=== PATIENT | female | born 1940 | race Caucasian/White ===

== ENCOUNTER 2016-10-11 15:20 | Day surgery (SDC) | payer OTHER ==
[~2016-10-11] VITALS: Ht 152.4 cm; Wt 62.9 kg
[2016-10-11 16:06] VITALS: Ht 152.4 cm; Wt 62.9 kg
[2016-10-11] MEDS ORDERED: HTN MED PO (16:13)
[2016-10-11 16:27] VITALS: BP 122/81; PULSE 64; RESP 16
[2016-10-11] MEDS ORDERED: LIDOCAINE 2% (SDV) 5 ML INJ ONE (16:38)
[2016-10-11] MEDS ORDERED: PROPOFOL 40 ML ONE (16:38)
[2016-10-11 17:42] VITALS: BP 167/74; PULSE 60; RESP 21
--- NOTE | 2016-10-11 18:32 | GILP ---
DATE OF PROCEDURE: 10/11/2016 NAME OF PROCEDURES: 1. Esophagogastroduodenoscopy and biopsy. 2. Colonoscopy. SURGEON: Heather Guerra MD PREOPERATIVE DIAGNOSES: 1. Abdominal pain. 2. Chronic heartburn. 3. Positive occult blood in stool. POSTOPERATIVE DIAGNOSES: 1. Hiatal hernia. 2. Gastroesophageal reflux disease. 3. Gastritis. 4. Gastric mucosal biopsies were taken for Helicobacter pylori test. 5. Colonoscopy all the way to the cecum. 6. Poor prep making the exam somewhat suboptimal. 7. Diverticulosis of the colon. 8. Internal hemorrhoids. INDICATION FOR THE PROCEDURE: Ms. Rosaura Patricio is a 76-year-old female patient who had upper abd ominal pain and chronic heartburn, not responding to therapy. She was noted to have positive occult blood in stool. Patient was scheduled for endoscopy and colonoscopy for further evaluation. The procedures and possible complications are well explained to the patient. The patient understood and consented to the procedure. DESCRIPTION OF PROCEDURE: Under the influence of anesthesia, the gastroscope was carefully introduc ed into the esophagus and under direct vision, it was advanced to the stomach and through the pyloru s into the duodenal bulb and descending duodenum. FINDINGS: ESOPHAGUS: The patient had hiatal hernia and gastroesophageal reflux disease. STOMACH: She had gastritis with erosions. Gastric mucosal biopsies were taken for H. pylori test. DUODENUM: Normal. The colonoscope was carefully introduced in the rectum and under direct vision, it was advanced all the way to the cecum. FINDINGS: The patient had poor prep making the exam somewhat suboptimal. She was noted to have div erticulosis of the colon. She also had internal hemorrhoids. She tolerated the procedures very well and there was no complication from the procedures. At the en d of the procedures, she was awake with stable vital signs and she was discharged home to the care o f her family. IMPRESSION: Please see postoperative diagnosis. PLAN: 1. Omeprazole 40 mg p.o. q.a.m. 2. Await H. pylori test report. 3. Because of the poor prep and suboptimal nature of the examination, would recommend repeat colono scopy in 1 year with better preparation. Dictated By: HEATHER GAINES/SHERRON Conf#: [id number] DID#: [id number]
== END 2016-10-11 18:29 | disposition home or self-care (01) ==
LOC: GIL 15:20
PROVIDERS: ATTEND Internal Medicine Gastroenterology
DX: K44.9 Diaphragmatic hernia without obstruction or gangrene (principal); K21.9 Gastro-esophageal reflux disease without esophagitis; K29.70 Gastritis, unspecified, without bleeding; K57.90 Diverticulosis of intestine, part unspecified, without perforation or abscess without bleeding; K64.8 Other hemorrhoids; I10 Essential (primary) hypertension
CPT/HCPCS: 43239; 45378; 87081; Z7610

== ENCOUNTER 2018-03-12 06:19 | Day surgery (SDC) | END 2018-03-12 13:56 | disposition home or self-care (01) ==

== ENCOUNTER 2018-12-10 05:56 | Day surgery (SDC) | payer MEDICARE, OTHER ==
[~2018-12-10] VITALS: Ht 152.4 cm; Wt 64.5 kg
[2018-12-10] VITALS (8 sets, daily range): BP systolic 103–156; BP diastolic 58–78; PULSE 55–71; RESP 16–20; Ht 152.4 cm; Wt 64.5 kg
[~2018-12-10 05:56] MED LIST: HTN MED PO; omeprazole
[2018-12-10] MEDS ORDERED: OMEP20CA16 PO (07:04)
--- NOTE | 2018-12-10 07:21 | PREAC ---
Date/Time of Note Date/Time of Note DATE: 12/10/18 TIME: 07: Anesthesia Eval and Record Evaluation Time Pre-Procedure Interview DATE: 12/10/18 TIME: 07:19 Age 77 Sex female NPO: 8 hrs Preoperative diagnosis right foot arthritis Planned procedure right ist toe arthroplasty with implant insertion Past Medical History Past Medical History: Includes Cardio: HTN, Dyslipidemia GI: GERD Psych: Depression Surgery & Anesthesia Issues No known issue Meds Anticoagulation: No Beta Didi within 24 hr: No Reason Beta Didi not given: Pt. not on B-Didi Reported Medications Omeprazole* (Omeprazole*) 20 Mg Capsule., 20 MG PO DAILY, #30 CAP 12/10/18 Discontinued Reported Medications [omeprazole] No Conflict Check 03/12/18 [Htn Med] No Conflict Check, PO DAILY 10/11/16 Meds reviewed: Yes Allergies Coded Allergies: No Known Allergy (Unverified , 12/10/18) Allergies Reviewed: Yes Labs/Studies Labs Reviewed: Reviewed by anesthesiologist test: N/A Pre-procedure Exam Airway: Adequate mouth opening, Adequate thyromental dist Mallampati: Mallampati II Teeth: Normal Lung: Normal Heart: Normal ASA Physical Status ASA physical status: 2 Emergency: None Planned Anesthetic General/MAC: LMA Planned Pain Management Parenteral pain med Pre-operative Attestations Prior to commencing anesthesia and surgery, the patient was re-evaluated, there was verification of: *The patient's identity *The results of appropriate recent lab work and preoperative vital signs *The above evaluation not changing prior to induction *Anesthetic plan, risk benefits, alternative and complications discussed with patient/family; questions answered; patient/family understands, accepts and wishes to proceed. DENISE JACQUES December 10, 2018 07:21
[2018-12-10] MEDS ORDERED: PROPOFOL 100 ML ONE (07:24)
[2018-12-10] MEDS ORDERED: FENTAnyl 50 MCG/ML VIAL ONE (07:26)
[2018-12-10] MEDS ORDERED: LIDOCAINE 2% (SDV) 5 ML INJ ONE (07:26)
--- NOTE | 2018-12-10 07:55 | HPN ---
Date/Time of Note Date/Time of Note DATE: 12/10/18 TIME: 07:55 Interval H&P Admission Note Pt. seen H&P reviewed: No system changes LAURA BARKSDALE DPM December 10, 2018 07:55
[2018-12-10] MEDS ORDERED: LACTATED RINGER'S 1,000 ML IV SCH (08:00)
[2018-12-10] MEDS ORDERED: BUPIVACAINE 0.5% (SDV) 30 ML INJ ONE (08:07)
[2018-12-10] MEDS ORDERED: LIDOCAINE 2% (MDV) 20 ML INJ ONE (08:07)
[2018-12-10] MEDS ORDERED: DEXAMETHASONE 4 MG/ML 1 ML INJ ONE (08:43)
--- NOTE | 2018-12-10 08:55 | SIPON ---
Date/Time of Note Date/Time of Note DATE: 12/10/18 TIME: 08:54 Operative Report Preoperative Diagnosis Arthritic right first metatarsal phalangeal joint. Postoperative Diagnosis Arthritic right first metatarsal phalangeal joint Operation/Procedure Performed Implant arthroplasty right first metatarsal phalangeal joint. Surgeon see signature line sales operations assistant none Anesthesia: MAC Estimated blood loss: none Transfusion Required none Specimen none Grafts/Implants none Complications none LAURA BARKSDALE DPM December 10, 2018 08:55
[2018-12-10] MEDS ORDERED: CEFAZOLIN 1 GM INJ ONE (08:56)
[2018-12-10] MEDS ORDERED: LABETALOL HCL 20MG INJ IV PRN (09:00)
[2018-12-10] MEDS ORDERED: OXYCODONE/ACETAMINOPHEN (5/325) TAB PO PRN ×2 (09:00)
[2018-12-10] MEDS ORDERED: FENTAnyl 50 MCG/ML VIAL IV PRN ×3 (09:00)
[2018-12-10] MEDS ORDERED: ONDANSETRON 4 MG INJ IV PRN (09:00)
[2018-12-10] MEDS ORDERED: ALBUTEROL 0.083% (NEB) 2.5 MG/3 ML AMP HHN PRN (09:00)
[2018-12-10] MEDS ORDERED: KETOROLAC 30 MG INJ IV PRN (09:00)
[2018-12-10] MEDS ORDERED: hydrALAzine 20 MG INJ IV PRN (09:00)
[2018-12-10] MEDS ORDERED: EPHEDrine 25 MG/5 ML SYG IV PRN (09:00)
[2018-12-10] MEDS ORDERED: MEPERIDINE 25 MG INJ IV PRN (09:00)
[2018-12-10] MEDS ORDERED: DIPHENHYDRAMINE 50 MG INJ IV PRN (09:00)
--- NOTE | 2018-12-10 09:04 | PAC ---
Date/Time of Note Date/Time of Note DATE: 12/10/18 TIME: 09:03 Post-Anesthesia Notes Post-Anesthesia Note Last documented vital signs bp 112/67 temp 98.5 O2 sat 97% p 74 Activity: WNL Respiratory function: WNL Cardiovascular function: WNL Mental status: Baseline Pain reasonably controlled: Yes Hydration appropriate: Yes Nausea/Vomiting absent: Yes DENISE JACQUES December 10, 2018 09:04
[2018-12-10] MEDS ORDERED: HYDROCODONE/APAP (10/325) TAB PO PRN (09:30)
--- NOTE | 2018-12-16 10:18 | OPR ---
DATE OF OPERATION: 12/10/2018 SURGEON: Grisel Ndiaye DPM ANESTHESIOLOGIST: Dr. Eaton ANESTHESIA: Local with IV sedation. 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 PROCEDURE PERFORMED: Implant arthroplasty, right 1st metatarsal phalangeal joint. DESCRIPTION OF PROCEDURE: The patient was brought into the operating room, placed on the table in a secure supine position. Cardiac morning, IV sedation and a pneumatic tourniquet was utilized for this case. A total of 10 mL of 0.5 percent Marcaine plain mixed with 2 percent lidocaine plain were infiltrated into the right foot in the form of a Cop[place] block to the right foot. Upon achieving anesthesia, the right foot and leg were prepped and draped in the usual sterile manner. The ankle pneumatic tourniquet was inflated to 250 mmHg. Procedure number 1 was then performed, implant arthroplasty right 1st metatarsophalangeal joint. A 4 cm dorsal linear incision was performed over the 1st metatarsophalangeal joint. The incision was deepened. Superficial bleeders were then cauterized and bovied as necessary. The incision was then deepened down to the capsule. A linear capsulotomy was performed. The capsule was reflected dorsally and plantarly exposing the 1st metatarsophalangeal joint, which was severely arthritic with osteophytes and severely diminution of the cartilaginous surface of the head of the 1st metatarsal of the base of the proximal phalanx of the 1st metatarsophalangeal joint. Using the appropriate instrumentation, the bone cuts were made at the 1st metatarsal head and base of the proximal phalanx of the right hallux. Using the appropriate reamers, the 1st metatarsal head was drilled as well as the base of the proximal phalanx to allow for insertion of the implant. The implant well seated was noted to be size 3-0 implant which was inserted. Intraoperative range of motion was satisfactory and good alignment of the 1st metatarsophalangeal joint was maintained. The surgical site was irrigated with sterile saline mixed with bacitracin solution. The capsule was then reapproximated with 3-0 Vicryl simple interrupted sutures. The subcutaneous tissue was then closed with 4-0 Vicryl simple interrupted sutures. The skin edges were reapproximated with a running 3-0 Prolene subcuticular stitch. The dressing consisted of Xeroform gauze, 4 x 4 gauze, 4 inch Kerlix roll, and 2 inch Coban into a semi compressive dressing. The ankle pneumatic tourniquet was then deflated and immediate hyperemia to all digits of the right foot were noted instantaneously. No intraoperative complications were encountered. The patient tolerated the above procedure well, left the OR with vital signs stable and satisfactory. The patient will follow up 1 week postop. Dictated By: Grisel Ndiaye DPM /alban/eladia /Document#: [id number]
== END 2018-12-10 10:41 | disposition home or self-care (01) ==
LOC: SDS 05:56 → EDBD 07:30 → SDS 10:41
PROVIDERS: ATTEND Podiatrist Primary Podiatric Medicine
DX: M19.071 Primary osteoarthritis, right ankle and foot (principal); I10 Essential (primary) hypertension
CPT/HCPCS: 28291; J0690; J1100; J3010